=== PATIENT | female | born 1940 | race Caucasian/White ===

== ENCOUNTER 2016-07-23 11:21 | Emergency (ER) | payer BC ==
[~2016-07-23] VITALS: Ht 161.3 cm; Wt 58.8 kg
[~2016-07-23 11:21] MED LIST: BIOF500T PO; CALC-5 PO; CHOL1000 PO; LEVO75TA5 PO; LOSA1TAB PO; MONT1TAB5 PO; OMEG10007 PO; PRLSR20 PO; SIMV20TA2 PO
[2016-07-23 11:25] VITALS: TEMP 36.4; Ht 161.3 cm; Wt 58.8 kg
--- NOTE | 2016-07-23 12:29 | DIAGNOSTIC IMAGING REPORT ---
CT OF THE HEAD WITHOUT CONTRAST CLINICAL HISTORY: Head injury. COMPARISON STUDY: Head CT April 06, 2011. CT DOSE: 863.23 mGy.cm TECHNIQUE: Helical axial images of the head were obtained without IV contrast. Automated exposure control was utilized for the study. FINDINGS: No acute intracranial hemorrhage, midline shift or mass effect is present. Ventricular system is normal. Basilar cisterns are patent. There are no extra-axial collections. 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 There is no calvarial fracture. The right infraorbital contusion. There is moderate mucosal thickening of left maxillary sinus with an air-fluid level. There is moderate mucosal thickening of the left ethmoid sinuses. IMPRESSION: 1. No acute intracranial findings. 2. Left maxillary and ethmoid sinusitis. 3. No calvarial fracture. Right infraorbital contusion. Electronically signed by: Rick Mancini M.D. 07/23/2016 12:27 PM Dictated Date/Time: 07/23/2016 12:24 PM
--- NOTE | 2016-07-23 12:33 | DIAGNOSTIC IMAGING REPORT ---
MAXILLOFACIAL CT CT DOSE: HISTORY: Trauma. Pain. CHI/R facial injury s/p trip and fall TECHNIQUE: Multiaxial CT images of the maxillofacial region were performed and reformatted in the coronal plane without the use of contrast. COMPARISON: 04/06/2011 FINDINGS: The visualized cervical spine, skull base, pterygoid plates, nasal bones, lamina papyracea, orbital floors, mandible, and zygomatic arches are intact. No fractures. The orbits are unremarkable. Prior antral window placement. Moderate mucosal thickening of the ethmoid and left maxillary sinuses. Mild hypertrophic changes of the nasal turbinates. Prior partial ethmoidectomy. No acute bony abnormality. IMPRESSION: 1. Chronic sinus change. 2. No acute bony abnormality. Electronically signed by: Juan East M.D. 07/23/2016 12:31 PM Dictated Date/Time: 07/23/2016 12:27 PM
--- NOTE | 2016-07-23 12:53 | EMERGENCY ROOM VISIT NOTE ---
ED Visit Note First contact with patient: 11:39 Staff note: I have reviewed the Patients chart and have discussed this case with my PA. I generally agree with the ED note and findings.
[2016-07-23 13:05] VITALS: BP 190/87; PULSE 65; O2SAT 96
--- NOTE | 2016-07-23 16:18 | EMERGENCY ROOM VISIT NOTE ---
History First contact with patient: 11:39 Chief Complaint: FACIAL PAIN/INJURY Stated Complaint: FELL DOWN, INJURY TO FACE History of Present Illness The patient is a 75 year old female who presents to the Emergency Room with complaints of injuries after she tripped on an uneven sidewalk and fell forward onto her right side. She complains mostly of right facial pain and headache. She denies any neck or back pain. She does report bruising and abrasions to her right hand and right knee, but denies any significant knee pain with walking , ankle and move her right elbow, wrist and fingers without significant discomfort. She denies any loss of consciousness, but has been reporting progressively worsening headache. The patient is on a baby aspirin daily. She rates her discomfort a 4 out of 10. Tetanus immunization is up-to-date. Review of Systems 10 system review was performed and was negative except for pertinent positives and negatives as indicated in history of present illness Past Medical/Surgical History Medical Problems: (1) Carotid Artery Occlusion W O Cerebral Infarction (2) Diverticulosis Colon (W/O Ment Of Hemorrhage) (3) Hyperlipidemia Nec/Nos (4) Hypertension Nos (5) Hypothyroidism Nos (6) Retinal artery occlusion (7) Vitamin D Deficiency Nos Family History FH: cancer FH: diabetes mellitus FH: hypertension Social History Smoking Status: Never Smoker Alcohol Use: none Marital Status: Occupation Status: retired Current/Historical Medications Scheduled Bioflavonoid Products (Mitzi-C), 1 TAB PO BID Calcium-Magnesium W/ Vitamin D (Calcium 500), 1 TAB PO QAM Cholecalciferol (Vitamin D3), 1 TAB PO QAM Fish Oil ([place]upont-3), 1 CAP PO QAM Levothyroxine Sodium (Levothyroxine Sodium), 1 TAB PO QAM Losartan Potassium (Cozaar), 25 MG PO QAM Montelukast Sodium (Montelukast Sodium), 1 TAB PO HS Omeprazole (Prilosec), 20 MG PO QAM Simvastatin (Zocor), 20 MG PO HS Allergies Coded Allergies: Ciprofloxacin (Verified Adverse Reaction, Mild, GI UPSET, 07/23/16) Sulfa Antibiotics (Verified Adverse Reaction, Unknown, GI UPSET, 07/23/16) Physical Exam Vital Signs Date Time Temp Pulse Resp B/P Pulse Ox O2 Delivery O2 Flow Rate FiO2 07/23/16 13:05 65 18 190/87 96 Room Air 07/23/16 11:25 36.4 73 18 160/94 96 Room Air Physical Exam CONSTITUTIONAL: Healthy and well nourished. Alert and oriented X 3 with positive affect. Patient does not appear in any acute distress. GCS 15. HEENT: Examination shows edema and ecchymosis of the right maxillary/inferior right eye region. She is tender over the maxilla and zygomatic process. She is also mildly tender over the inferior orbital rim. EOMs intact without discomfort or evidence of entrapment. Pupils equal, round and reactive. No subconjunctival hemorrhage, epistaxis, hemotympanum or Garcia sign. OROPHARYNX: No dental trauma or other intraoral lacerations noted. No bloody postnasal drip. NECK: Full active range of motion without discomfort. RESPIRATORY: Clear to auscultation bilaterally with no wheezing, crackles, rhonchi or stridor. CARDIOVASCULAR: Regular rate and rhythm with no murmurs, rubs or gallops. GASTROINTESTINAL: Bowel sounds present in all quadrants. Soft and nontender to palpation. MUSCULOSKELETAL: Examination shows a small abrasion over the right patella. She is able straight leg raise, and is observed without antalgic gait walking to her exam room. Ligamentous exam is normal. Examination also shows an area of ecchymosis and superficial abrasions over the dorsal second and third MCP region of the right hand. Otherwise she has full range of motion of the fingers and wrist without discomfort. Distal pulses are intact. INTEGUMENTARY: No rash or other significant dermatologic conditions noted. NEUROLOGIC: Extremity's are sensory intact. Normal finger to nose test. Negative pronator drift. No ataxia with ambulation. Medical Decision & Procedures ER Provider Diagnostic Interpretation: Noncontrast CT of the head does not show any intracranial bleed or fractures. The left maxillary and ethmoid sinusitis is noted. Radiologist report is as follows: CT OF THE HEAD WITHOUT CONTRAST CLINICAL HISTORY: Head injury. COMPARISON STUDY: Head CT April 06, 2011. CT DOSE: 863.23 mGy.cm TECHNIQUE: Helical axial images of the head were obtained without IV contrast. Automated exposure control was utilized for the study. FINDINGS: No acute intracranial hemorrhage, midline shift or mass effect is present. Ventricular system is normal. Basilar cisterns are patent. There are no extra-axial collections. 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 There is no calvarial fracture. The right infraorbital contusion. There is moderate mucosal thickening of left maxillary sinus with an air-fluid level. There is moderate mucosal thickening of the left ethmoid sinuses. IMPRESSION: 1. No acute intracranial findings. 2. Left maxillary and ethmoid sinusitis. 3. No calvarial fracture. Right infraorbital contusion. Noncontrast CT of the facial bones also does not show any acute fractures, with sinus changes as noted. Radiologist report is as follows: MAXILLOFACIAL CT CT DOSE: HISTORY: Trauma. Pain. CHI/R facial injury s/p trip and fall TECHNIQUE: Multiaxial CT images of the maxillofacial region were performed and reformatted in the coronal plane without the use of contrast. COMPARISON: 04/06/2011 FINDINGS: The visualized cervical spine, skull base, pterygoid plates, nasal bones, lamina papyracea, orbital floors, mandible, and zygomatic arches are intact. No fractures. The orbits are unremarkable. Prior antral window placement. Moderate mucosal thickening of the ethmoid and left maxillary sinuses. Mild hypertrophic changes of the nasal turbinates. Prior partial ethmoidectomy. No acute bony abnormality. IMPRESSION: 1. Chronic sinus change. 2. No acute bony abnormality. ED Course Patient history and physical exam were performed. Nurse's notes were reviewed. Vital signs were reviewed and normal. Noncontrast CT of the head and facial bones were normal except for left sinusitis, which the patient reports is chronic, and she has had no recent sinus problems. The patient was encouraged to avoid strenuous activities until her headache and facial pain improves. Ibuprofen or Tylenol as needed for pain. The patient refused any per [place] analgesics. She was encouraged to follow-up with her PCP as needed for further management. The patient was happy with plan of care, voiced understanding of all discharge instructions, and rated her pain a 3 out of 10 at the time of discharge. And was also seen and examined by Dr. Louise, ED attending physician , who agrees with workup and plan of care. Medical Decision Impression Primary Impression: Closed head injury Additional Impressions: Facial contusion Fall from slip, trip, or stumble Departure Information Referrals Roel Mata M.D. (PCP) Patient Instructions My [facility] Problem Qualifiers Primary Impression: Closed head injury Encounter type: initial encounter Qualified Codes: S09.90XA - Unspecified injury of head, initial encounter Additional Impressions: Facial contusion Encounter type: initial encounter Qualified Codes: S00.83XA - Contusion of other part of head, initial encounter Fall from slip, trip, or stumble Encounter type: initial encounter Qualified Codes: W01.0XXA - Fall on same level from slipping, tripping and stumbling without subsequent striking against object, initial encounter
== END 2016-07-23 13:06 | disposition home or self-care (01) ==
LOC: C.EDB 11:22 → C.EDD 13:06
DX: S09.90XA Unspecified injury of head, initial encounter (principal); S00.83XA Contusion of other part of head, initial encounter; W01.0XXA Fall on same level from slipping, tripping and stumbling without subsequent striking against object, initial encounter; I10 Essential (primary) hypertension; E03.9 Hypothyroidism, unspecified; K57.30 Diverticulosis of large intestine without perforation or abscess without bleeding; Z79.899 Other long term (current) drug therapy; Z88.2 Allergy status to sulfonamides; Z80.9 Family history of malignant neoplasm, unspecified; Z83.3 Family history of diabetes mellitus; Z82.49 Family history of ischemic heart disease and other diseases of the circulatory system

== ENCOUNTER → 2016-08-09 | Outpatient (CLI) | payer BC ==
[2016-08-09 12:21] LABS: BASO % 0.7 %; BASO ABS # 0.06 K/uL (0-0.2); COMPLETE YES; EOS % 7.6 %; HEMATOCRIT 41.7 % (37-47); IG% 0.3 %; LYMPH % 37.2 %; LYMPH ABS # 3.37 K/uL (1.2-3.4); MEAN CELL VOLUME 88.3 fL (80-100); MEAN CORPUSCULAR HEMOGLOBIN 30.3 pg (25-34); MEAN CORPUSCULAR HGB CONC 34.3 g/dl (32-36); MEAN PLATELET VOLUME 10.7 fL (7.4-10.4); MONO % 9.9 %; NEUT % 44.3 %; PLATELET COUNT 309 K/uL (130-400); RED BLOOD COUNT 4.72 M/uL (4.2-5.4); WHITE BLOOD COUNT 9.05 K/uL (4.8-10.8)
[2016-08-09 12:59] LABS: ALT/SGPT 29 U/L (12-78); BLOOD UREA NITROGEN 20 mg/dl (7-18); BUN/CREATININE RATIO 23.6 (10-20); CARBON DIOXIDE 29 mmol/L (21-32); CHLORIDE 101 mmol/L (98-107); CREATININE 0.85 mg/dl (0.60-1.20); GLUCOSE 81 mg/dl (70-99); POTASSIUM 4.3 mmol/L (3.5-5.1); SODIUM 138 mmol/L (136-145)
[2016-08-09 13:09] LABS: ALB/GLOB RATIO 1.3 (0.9-2); ALKALINE PHOSPHATASE 83 U/L (45-117); AST/SGOT 16 U/L (15-37)
[2016-08-09 13:37] LABS: URINE APPEARANCE CLEAR (CLEAR); URINE BILIRUBIN NEG (NEG); URINE COLOR YELLOW; URINE EPITHELIAL CELL AUTO 20-30 /lpf (0-5); URINE NITRITE NEG (NEG); URINE PH 7.5 (4.5-7.5); URINE SPECIFIC GRAVITY 1.017 (1.000-1.030); UROBILINOGEN NEG (NEG); ZZUR CULT IF INDIC CLEAN CATCH NO
[2016-08-09 13:41] LABS: MANUAL MICROSCOPIC REQUIRED? NO; REVIEW REQ? NO
== END | disposition home or self-care (01) ==
LOC: C.LABBFT 07:39
PROVIDERS: ATTEND Internal Medicine
DX: I10 Essential (primary) hypertension (principal); E03.9 Hypothyroidism, unspecified; M85.80 Other specified disorders of bone density and structure, unspecified site

== ENCOUNTER → 2016-09-20 | Outpatient (CLI) | payer BC ==
--- NOTE | 2016-09-21 08:02 | MAMMOGRAPHY REPORT ---
BILATERAL DIGITAL SCREENING MAMMOGRAM WITH CAD: 09/20/2016 CLINICAL HISTORY: Routine screening. Patient has no complaints. TECHNIQUE: Bilateral CC and MLO views were obtained. Current study was also evaluated with a Compute r Aided Detection (CAD) system. COMPARISON: Comparison is made to exams dated: 09/17/2015 mammogram, 09/12/2014 mammogram, 09/07/2013 amanda mogram, 03/02/2013 mammogram, 09/08/2012 mammogram, and 09/05/2012 mammogram - [facility] nter. BREAST COMPOSITION: The tissue of both breasts is heterogeneously dense, which may obscure small mas ses. FINDINGS: There is a stable grouping of coarse heterogeneous microcalcifications in the 9:00 left mac ast, that is unchanged in appearance dating back to at least 08/15/2008, therefore likely benign. Th ere are scattered benign-appearing rim calcifications and coarse calcifications in the right breast. Mild vascular calcification bilaterally. No new suspicious mass, architectural distortion or cluste r of microcalcifications is seen. IMPRESSION: ACR BI-RADS CATEGORY 1: NEGATIVE There is no mammographic evidence of malignancy. A 1 year screening mammogram is recommended. The pa tient will receive written notification of the results. Approximately 10% of breast cancers are not detected with mammography. A negative mammographic report should not delay biopsy if a clinically suggestive mass is present. Monica Love M.D. ay/:09/20/2016 14:45:33 Mannequin Coloring Artist: Tatiana RAYGOZA(Charles)(Yeni), [facility] letter sent: Normal 1/2 BI-RADS Code: ACR BI-RADS Category 1: Negative
== END | disposition home or self-care (01) ==
LOC: C.MAMM 07:40
PROVIDERS: ATTEND Internal Medicine
DX: Z12.31 Encounter for screening mammogram for malignant neoplasm of breast (principal)

== ENCOUNTER → 2017-05-11 | Outpatient (CLI) | payer BC | END | disposition home or self-care (01) | LOC: C.LABSPEC 09:33 | PROVIDERS: ATTEND Nurse Practitioner | DX: R39.9 Unspecified symptoms and signs involving the genitourinary system (principal) ==

== ENCOUNTER → 2017-08-22 | Outpatient (CLI) | payer BC ==
[2017-08-22 12:26] LABS: BASO ABS # 0.06 K/uL (0-0.2); EOS ABS # 0.25 K/uL (0-0.5); HEMATOCRIT 40.5 % (37-47); HEMOGLOBIN 13.9 g/dL (12.0-16.0); IG# 0.01 K/uL (0.00-0.02); LYMPH ABS # 2.79 K/uL (1.2-3.4); MEAN CELL VOLUME 85.8 fL (80-100); MEAN CORPUSCULAR HEMOGLOBIN 29.4 pg (25-34); MEAN CORPUSCULAR HGB CONC 34.3 g/dl (32-36); MEAN PLATELET VOLUME 10.8 fL (7.4-10.4); MONO % 8.5 %; MONO ABS # 0.53 K/uL (0.11-0.59); NEUT % 41.3 %; NEUT ABS # 2.56 K/uL (1.4-6.5); PLATELET COUNT 269 K/uL (130-400); RED CELL DISTRIBUTION WIDTH CV 13.2 % (11.5-14.5); RED CELL DISTRIBUTION WIDTH SD 41.7 fL (36.4-46.3)
[2017-08-22 12:44] LABS: ALBUMIN 3.9 gm/dl (3.4-5.0); ALKALINE PHOSPHATASE 72 U/L (45-117); ALT/SGPT 30 U/L (12-78); AST/SGOT 22 U/L (15-37); BLOOD UREA NITROGEN 17 mg/dl (7-18); CALCIUM 8.8 mg/dl (8.5-10.1); CARBON DIOXIDE 29 mmol/L (21-32); CREATININE 0.82 mg/dl (0.60-1.20); GLUCOSE 88 mg/dl (70-99); POTASSIUM 4.3 mmol/L (3.5-5.1); SODIUM 139 mmol/L (136-145)
== END | disposition home or self-care (01) ==
LOC: C.LABBFT 07:37
PROVIDERS: ATTEND Internal Medicine
DX: I10 Essential (primary) hypertension (principal); E03.9 Hypothyroidism, unspecified; M85.80 Other specified disorders of bone density and structure, unspecified site